=== PATIENT | male | born 1965 | race Caucasian/White ===

== ENCOUNTER → 2016-10-23 | Day surgery (SDC) | payer OTHER ==
[2016-10-17 09:03] VITALS: BMI 32.0
[~2016-10-23] VITALS: Ht 180.3 cm; Wt 104.5 kg
[~2016-10-23] MED LIST: LEVO175T3 PO; LIDOCAINE HCL 2% 2 ML VIAL (20MG/ML) ONE; LISI-461 PO; MIDAZOLAM HCL 1 MG/ML 2ML VIAL ONE; ONDANSETRON INJ 2 MG/ML 2 ML VIAL ONE; PRLSR20 PO; PROPOFOL IV EMULSION 10 MG/ML 20 ML VIAL IV ONE; RANI300T2 PO; SODIUM CHLORIDE 0.9% 500ML 500 ML IV ONE; VALA500T60 PO
[2016-10-23 08:59] VITALS: Ht 180.3 cm; Wt 104.5 kg
--- NOTE | 2016-10-23 09:49 | Endo History and Physical ---
History & Physical Date of Service: Oct 23, 2016. Chief Complaint: SCREENING Referring Physician: DR MEGAN SAUL History of Present Illness 51 yo CM who presents for screening colonoscopy. Past Surgical History Hx Cardiac Surgery: No Hx Internal Defibrillator: No Hx Pacemaker: No Hx Abdominal Surgery: No Hx of Implantable Prosthesis: No Hx Cancer Surgery: No Hx Thoracic Surgery: No Hx Orthopedic: No Hx Urinary Tract Surgery: No Family History None Social History Smoking Status: Never Smoker Hx Substance Use: No Hx Alcohol Use: Yes (OCCASIONALLY) Allergies Coded Allergies: NO KNOWN DRUG ALLERGIES (Verified Allergy, Unknown, ., 10/23/16) Current Medications Reported Home Medications Medications Dose Route/Sig Max Daily Dose Days Date Category Valtrex (Valacyclovir HCl) 500 Mg Tab 500 Mg PO DIRECTED PRN 10/17/16 Reported Zantac (Ranitidine HCl) 300 Mg Tab 300 Mg PO HS 10/17/16 Reported Prilosec (Omeprazole) 20 Mg Capcr 20 Mg PO QAM 10/17/16 Reported Zestril (Lisinopril) 10 Mg Tab 10 Mg PO QAM 10/17/16 Reported Levothyroxine Sodium 175 Mcg Tab 1 Tab PO QAM 90 10/17/16 Reported Vital Signs Weight (Kilograms): 104.55 Height (Feet): 5 Height (Inches): 11 Date Time Temp Pulse Resp B/P Pulse Ox O2 Delivery O2 Flow Rate FiO2 10/23/16 09:03 36.8 95 20 147/86 95 Room Air Physical Exam General Appearance: WD/WN, no apparent distress Respiratory/Chest: Auscultation: breath sounds normal Cardiovascular: Heart Auscultation: RRR Abdomen: Bowel Sounds: normal Inspection & Palpation: soft, non-distended, no tenderness, guarding & rebound Assessment and Plan Assessment: 51 yo CM who presents for screening colonoscopy. Plan: Proceed with colonoscopy.
--- NOTE | 2016-10-23 10:07 | Discharge Instructions ---
Endoscopy Patient Instructions Date / Procedure(s) Performed Oct 23, 2016. Colonoscopy Allergy Information Coded Allergies: NO KNOWN DRUG ALLERGIES (Verified Allergy, Unknown, ., 10/23/16) Discharge Date / Findings Oct 23, 2016. Internal hemorrhoids Medication Instructions OK to resume all medications today as prescribed. Reported Home Medications Medications Dose Route/Sig Max Daily Dose Days Date Category Valtrex (Valacyclovir HCl) 500 Mg Tab 500 Mg PO DIRECTED PRN 10/17/16 Reported Zantac (Ranitidine HCl) 300 Mg Tab 300 Mg PO HS 10/17/16 Reported Prilosec (Omeprazole) 20 Mg Capcr 20 Mg PO QAM 10/17/16 Reported Zestril (Lisinopril) 10 Mg Tab 10 Mg PO QAM 10/17/16 Reported Levothyroxine Sodium 175 Mcg Tab 1 Tab PO QAM 90 10/17/16 Reported Provider Instructions Activity Restrictions - No exercising or heavy lifting for 24 hours. - Do not drink alcohol the day of the procedure. - Do not drive a car or operate machinery until the day after the procedure. - Do not make any important decisions or sign important papers in 24 hours after the procedure. Following Day: - Return to full activity which may include returning to work/school. Diet Start your diet with liquids and light foods (jello, soup, juice, toast). Then eat your usual diet if not nauseated. Treatment For Common After Affects For mild abdominal pain, bloating, or excessive gas: - Rest - Eat lightly - Lie on right side Follow-Up Information Follow-up with DR MEGAN SAUL as scheduled Anesthesia Information What You Should Know You have had a procedure that required some medicine to reduce anxiety and discomfort. This treatment is called moderate sedation. After receiving the treatment, you may be sleepy, but you will be able to breathe on your own. The effects of the treatment may last for several hours. Follow these instructions along with Activity/Diet recommendations noted above: * Do NOT do anything where dizziness or clumsiness would be dangerous. * Rest quietly at home today, then you can be up and about tomorrow. * Have a responsible person stay with you the rest of today. * You may have had an I.V. today. If so, you may take the dressing off later today. Recommendations Call your doctor if: * Trouble breathing * Continuous vomiting for more than 24 hours * Temperature above 101 degrees * Severe abdominal pain or bloating * Pain not relieved by pain medicine ordered * There is increased drainage or redness from any incision * A large amount of rectal bleeding greater than 2-3 tablespoons. (If you had a polyp/s removed or have hemorrhoids, a small amount of blood - from the rectum is to be expected.) * You have any unanswered questions or concerns. IN THE EVENT OF A SERIOUS EMERGENCY, GO TO THE NEAREST EMERGENCY ROOM Your discharge instructions were prepared by provider Mitch Boo. Patient Instructions Signature Page Julian Ochoa Patient (or Guardian) Signature/Date: I have read and understand the instructions given to me by my caregivers. Caregiver/RN/Doctor Signature/Date: The above-named patient and/or guardian has received patient instructions on this date. + Original Patient Signature Page (only) stays with chart. Please make copy for patient.
--- NOTE | 2016-10-23 10:10 | GI REPORT ---
Procedure Date: 10/23/2016 9:44 AM Procedure: Colonoscopy Indications: Screening for colorectal malignant neoplasm Medicines: Monitored Anesthesia Care Complications: No immediate complications. Estimated Blood Loss: Estimated blood loss: none. Procedure: Pre-Anesthesia Assessment: - Prior to the procedure, a History and Physical was performed, and patient medications and allergies were reviewed. The patient's tolerance of previous anesthesia was also reviewed. The risks and benefits of the procedure and the sedation options and risks were discussed with the patient. All questions were answered, and informed consent was obtained. Prior Anticoagulants: The patient has taken no previous anticoagulant or antiplatelet agents. ASA Grade Assessment: II - A patient with mild systemic disease. After reviewing the risks and benefits, the patient was deemed in satisfactory condition to undergo the procedure. After I obtained informed consent, the scope was passed under direct vision. Throughout the procedure, the patient's blood pressure, pulse, and oxygen saturations were monitored continuously. The scope was introduced through the anus and advanced to the terminal ileum. The colonoscopy was performed without difficulty. The patient tolerated the procedure well. The quality of the bowel preparation was good. The terminal ileum, ileocecal valve, appendiceal orifice, and rectum were photographed. Findings: Non-bleeding internal hemorrhoids were found during retroflexion. The hemorrhoids were small. The exam was otherwise without abnormality. Impression: - Non-bleeding internal hemorrhoids. - The examination was otherwise normal. - No specimens collected. Recommendation: - Resume previous diet. - Continue present medications. - Repeat colonoscopy in 10 years for surveillance. - Return to primary care physician as previously scheduled. Mitch Boo DO 10/23/2016 10:08:52 AM This report has been signed electronically. Note Initiated On: 10/23/2016 9:44 AM I attest to the content of the Intraoperative Record and orders documented therein, exceptions below
--- NOTE | 2016-10-23 10:33 | Anesthesiology Progress Note ---
Anesthesia Post Op Note Date & Time Oct 23, 2016 at 10:32 Vital Signs Pain Intensity: 0 Vital Signs Past 12 Hours Date Time Temp Pulse Resp B/P Pulse Ox O2 Delivery O2 Flow Rate FiO2 10/23/16 10:11 95 20 100/70 95 Room Air 10/23/16 09:03 36.8 95 20 147/86 95 Room Air Notes Mental Status: alert / awake / arousable, participated in evaluation Pt Amnestic to Procedure: Yes Nausea / Vomiting: adequately controlled Pain: adequately controlled Airway Patency, RR, SpO2: stable & adequate BP & HR: stable & adequate Hydration State: stable & adequate Anesthetic Complications: no major complications apparent Pt doing well.
[2016-10-23 10:40] VITALS: BP 120/93; PULSE 81; O2SAT 95
== END | disposition home or self-care (01) ==
LOC: C.GI 08:41
PROVIDERS: ATTEND Internal Medicine
DX: Z12.11 Encounter for screening for malignant neoplasm of colon (principal); K64.8 Other hemorrhoids; I10 Essential (primary) hypertension; Z68.32 Body mass index [BMI] 32.0-32.9, adult

== ENCOUNTER → 2017-04-17 | Outpatient (CLI) | payer OTHER ==
[~2017-04-17] MED LIST changes: -LIDOCAINE HCL 2% 2 ML VIAL (20MG/ML) ONE; -MIDAZOLAM HCL 1 MG/ML 2ML VIAL ONE; -ONDANSETRON INJ 2 MG/ML 2 ML VIAL ONE; -PROPOFOL IV EMULSION 10 MG/ML 20 ML VIAL IV ONE; -SODIUM CHLORIDE 0.9% 500ML 500 ML IV ONE
--- NOTE | 2017-04-18 05:57 | PAP/PSG TECHNICIAN REPORT ---
[facility] Blanket Weaver Polysomnogram Report Study name: None Report date: 04/18/2017 Study date: 04/17/2017 Referring Physician: Osiel Buitrago MD Name: CB OCHOA Interpreting Physician: Dennys Rey M.D. Date of : 1965 Blanket Weaver: Earlene Escamilla, PSGT. Sex: Male Age: 51 StudyType: PSG Weight: 232 lbs Height: 51 years, Height 5' 11" Neck Circum:18 inches BMI: 32.35 Medications: Levothyroxine Sodium 175 mcg, Lisinopril 10 mg, Omeprazole 20 mg, Ranitidine HCI 300 mg, Neva acyclovir HCi 1 gm. Patient History 51 yr. old male presents [facility] for a split night sleep study. Patient states that his states that his snoring is loud, and has witnessed apneas.Patient has an enlarged uvula and continued reflux problems.ESS=3, Neck =18 inches. Parameters Monitored NPSG: E1-M2, E2-M1, Fp1-M2, Fp2-M1, F3-M2, F4-M2, F4-M1, C3-M2, C4-M2, C4-M1, O1-M2, O2-M2, O2-M1, T3-M2, T4-M1, P3-M2, P4-M1, CHIN1, CHIN2, HR, EKG, Legs, PFLOW, SNOR, FLOW, CFLOW, Tidal Volume, THOR, ABDO, SpO2, PLTH, CPRESS, ETCO2 Wave, ETCO2, pH Sleep Architecture Sleep Stages Time at Lights Off 10:10:49 PM STAGES Time (min.) TST (%) Time at Lights On 5:32:49 AM Wake 118.5 -- Total Recording Time (TRT) 444.00 min. N1 35.0 11 Total Sleep Period (TSP) 383.0 min. N2 230.0 71 Total Sleep Time (TST) 323.0min. N3 0.0 0 Awake Time 120.0 min. REM 58.0 18 Wake after Sleep Onset 60.0 min. Sleep Efficiency (SE) 73 % Sleep Onset Latency (DEVIN) 59.0 min. Number of Stage 1 Shifts None Awakenings 12 Stage Changes 43 Number of REM periods 2 REM 58.0 18 REM Latency 186.5 min. NREM 265.0 82 Body Position Analysis Supine Right Left Side Prone Vertical Total Sleep Time (min.) 270.0 42.5 93.3 135.82 0.0 0.2 Total Sleep Time (%) 58% 13% 29% 42 0% N/A% Total Sleep Time REM (min.) 13.2 10.5 34.3 None 0.0 0.0 Total Sleep Time NREM (min.) 174.0 32.0 59.0 None 0.0 0.0 Intermittent Wake (min.) 82.8 26.4 9.0 None 0.0 0.2 Total Sleep Period (%) 56% None None None None None Arousals Myoclonus (PLM) * Events Count Index Events Count Index Spontaneous 48 9 Events Awake (PLMW) 3 1.5 Respiratory 6 1.1 Events Asleep w/ Arousal (PLMA) 2 0.4 PLM 2 0 Events Asleep w/o Arousal (PLMS) 48 8.9 Snoring 26 5 Total Asleep 50 9.3 Total 81 15 Total 53 7 Respiratory Analysis * CA OA MA CH H RERA Total Count 1 1 0 0 41 4 43 Index 0.2 0.2 0.0 0 7.6 1 8.7 Mean Duration 12.0 17.5 0.0 0.00 19.3 10.2 18.4 Longest Duration 12.0 17.5 0.0 0.00 0.0 11.1 58.2 Respiratory Event Summary Total Supine ~Supine Right Left Prone REM NREM Apneas Count 2 1 1 1 0 N/A 1 1 Index 0.4 0 0 1.4 0.0 N/A 1 0 Hypopneas (4% Desat) Count 41 30 11 3 8 N/A 10 31 Index 7.6 9.6 5 4.2 5.1 N/A 10.3 7.0 Apneas & All Hypopneas Count 43 31 12 4 8 N/A 11 32 Index 8.0 10 5 6 5 N/A 11.4 7.2 Respiratory Events (Transmissions Systems Operator+All Hyp+RERA) Count 43 35 12 4 8 N/A 11 32 Index 8.7 11 5 5.6 5.1 N/A 11.4 8.2 Respiratory Related Arousal Count 6 35 2 1 1 N/A 2 4 Index 1.1 1 1 1 1 N/A 2 1 Snoring Analysis Supine Right Left Prone REM NREM Total Snore duration 61.5 min Snores count 1,421 402 475 N/A 218 2,080 2,298 Snore mean duration 1.6 Sec Snores index 455 567 305 N/A 225.5 470.9 426.9 TST with snoring (%) 19.0% Desaturation Event Summary: Minimum %SpO2 Event Count Mean/Min/Max Duration(sec.) Desaturation Index % Time In Bed > 90 60 31.2 / 10.0 / 60.0 8.8 92.6 86 - 90 3 20.9 / 19.8 / 22.0 5.6 7.4 81 - 85 0 N/A 0.0 0.0 76 - 80 0 N/A 0.0 0.0 71 - 75 0 N/A 0.0 0.0 66 - 70 0 N/A 0.0 0.0 61 - 65 0 N/A 0.0 0.0 56 - 60 0 N/A 0.0 0.0 51 - 55 0 N/A 0.0 0.0 < 50 0 N/A 0.0 0.0 Total REM NREM Awake <50% 0.0 min. 0.0 min. 0.0 min. 0.0 min. 51 - 60% 0.0 min. 0.0 min. 0.0 min. 0.0 min. 61 - 70% 0.0 min. 0.0 min. 0.0 min. 0.0 min. 71 - 80% 0.0 min. 0.0 min. 0.0 min. 0.0 min. 81 - 90% 32.6 min. 5.5 min. 25.2 min. 1.8 min. 91 - 100% 407.3 min. 52.5 min. 239.8 min. 115.1 min. Average 93 92 92 94 Minimum SpO2 84 89 84 86 Desaturation Event Index 8.2 20.7 9.3 0.0 # Desat. Events below 89% 10 N/A 10 N/A Time(%) with Saturation below 89% 0.6 0.0 0.6 0.0 Time(min.) with Saturation below 89% 2.6 0.0 2.6 0.1 Time (mins) REM (mins) NREM (mins) % of TST SpO2 Below 90% 37 10 N27 1.7 SpO2 Below 88% 5 0 0 0 Heart Rate Analysis Min (bpm) Max (bpm) Average (bpm) Awake 55 100 69 NREM 59 97 67 REM 60 95 68 Overall 59 97 68 Supplemental O2 Values Minimum O2 level: None Value Start Time End Time Blanket Weaver Comments PSG Study MR. Ochoa slept in the right, left, and supine positions. No cardiac arrhythmia or PLM's noted. No bruxism noted. Snoring was noted and scored as a 4 on a scale of 1 through 5. (0=no snoring, 5=snoring loud enough to be heard through a closed door or down the kelly way) Mr. Ochoa awoke to use the restroom zero times during the night. Mr. Ochoa stated, I did not sleep as well as I do when I am in my own bed. The final report will be interpreted and signed by a sleep physician. The completed physician report will then be placed in the patient medical record. Therapy (cm H2O) 0 TIB (min.) 441.5 TST (min.) 323.0 Sleep Onset (min.) 59.0 REM Onset From Sleep (min.) 186.5 Sleep Efficiency % 73 Wakefulness (%) 27 Wakefulness (min.) 120.0 NREM 1 (%) 11 NREM 1 (min.) 35.0 NREM 2 (%) 71 NREM 2 (min.) 230.0 NREM 3 (%) 0 NREM 3 (min.) 0.0 REM (%) 18 REM (min.) 58.0 # Arousals 81 Arousal Index 15 # Snore 2,298 Snore Index 426.9 AHI 8.0 AHI Supine 10 AHI Non-Supine 5 NREM AHI 7.2 REM AHI 11.4 RDI 8.7 # Obstructive Apnea 1 # Central Apnea 1 # Mixed Apnea 0 # Hypopneas 41 RERAs 4 Total Respiratory Events 49 Time Below SpO2 89% (min.) 2.6 Mean NREM SpO2 (%) 92 Mean REM SpO2 (%) 92 Mean Sleep SpO2 (%) 92 Min NREM SpO2 (%) 84 Min REM SpO2 (%) 89 Position Supine (min.) 270.0 Position Non-supine (min.) 135.8 LM Index Sleep 9.3 LM Index NREM 10.0 LM Index REM 6.2 Mean Heart Rate (bpm) 68 Min Heart Rate (bpm) 59
--- NOTE | 2017-04-19 09:04 | POLYSOMNOGRAPH REPORT ---
CLINICAL DATA: A 51-year-old male with BMI of 32.[address] Osiel Buitrago and Dr. Loyola for a sleep study. He has loud snoring and witnessed apneas. He has a large uvula and reflux. His [place] Sleep Score is 6/24. SLEEP ARCHITECTURE: Total sleep period was 383 minutes. Total sleep time was 323 minutes divided between 265 minutes of non-REM sleep and 58 minutes of REM sleep. Sleep onset latency was delayed at 59 minutes. REM latency was delayed at 186.5 minutes. Sleep efficiency was reduced at 73%. Wake after sleep onset was 60 minutes. Sleep consisted of stage N1 11%, stage N2 71%, and REM 18%. AROUSAL DATA: 81 arousals were recorded for an index of 15 per hour and 48 were spontaneous. PERIODIC LIMB MOVEMENTS DATA: 50 limb movements during sleep were noted for an index of 9.3 per hour with arousal index of 0.4 per hour. RESPIRATORY DATA: Mild sleep apnea was documented. The AHI was 8. There was 1 central and 1 obstructive apneic episode. The longest duration of apnea was 17.5 seconds. There were 41 hypopneic episodes. The mean duration of hypopnea was 19.3 seconds. OXIMETRY DATA: Mild nocturnal hypoxemia was seen. Oxygen dayanara was 84% during non-REM sleep. The mean saturation was 93%. Time below 88% was 5 minutes. EKG: Heart rates ranged from 59-97 beats per minute. No arrhythmias were noted. OSTEOPATHIC PHYSICIAN'S COMMENTS: The patient slept in the right, left, and supine positions. Snoring was severe, rated 4 on a scale of 1-5. The patient did not achieve enough apneic episodes to meet split night criteria early enough in the study to warrant treatment. IMPRESSION: Mild sleep apnea/hypopnea with an apnea-hypopnea index of 8. RECOMMENDATIONS: The patient may benefit from weight loss, use of an oral appliance, use of auto CPAP, or a repeat sleep study with CPAP. Clinical correlation is needed. JOSE R
== END | disposition home or self-care (01) ==
LOC: C.NEUR 20:00
DX: G47.33 Obstructive sleep apnea (adult) (pediatric) (principal)

== ENCOUNTER → 2017-10-08 | Outpatient (CLI) | payer OTHER ==
[2017-10-08 09:42] LABS: BASO % 0.6 %; BASO ABS # 0.04 K/uL (0-0.2); EOS % 2.2 %; EOS ABS # 0.14 K/uL (0-0.5); HEMATOCRIT 46.5 % (42-52); HEMOGLOBIN 16.2 g/dL (14.0-18.0); IG# 0.03 K/uL (0.00-0.02); LYMPH % 32.8 %; LYMPH ABS # 2.13 K/uL (1.2-3.4); MEAN CELL VOLUME 92.3 fL (80-100); MEAN CORPUSCULAR HEMOGLOBIN 32.1 pg (25-34); MEAN CORPUSCULAR HGB CONC 34.8 g/dl (32-36); MEAN PLATELET VOLUME 9.4 fL (7.4-10.4); MONO % 6.8 %; MONO ABS # 0.44 K/uL (0.11-0.59); NEUT % 57.1 %; NEUT ABS # 3.71 K/uL (1.4-6.5); PLATELET COUNT 239 K/uL (130-400); RED CELL DISTRIBUTION WIDTH SD 43.7 fL (36.4-46.3); WHITE BLOOD COUNT 6.49 K/uL (4.8-10.8)
[2017-10-08 09:53] LABS: ALBUMIN 4.2 gm/dl (3.4-5.0); ALT/SGPT 56 U/L (12-78); BLOOD UREA NITROGEN 16 mg/dl (7-18); CARBON DIOXIDE 27 mmol/L (21-32); CHOLESTEROL 183 mg/dl (0-200); CREATININE 1.14 mg/dl (0.60-1.40); GLUCOSE 90 mg/dl (70-99); POTASSIUM 4.3 mmol/L (3.5-5.1); SODIUM 140 mmol/L (136-145)
[2017-10-08 10:04] LABS: ALKALINE PHOSPHATASE 54 U/L (45-117); AST/SGOT 33 U/L (15-37); LDL CHOLESTEROL CALCULATED 96 mg/dl; TOTAL PROTEIN 7.7 gm/dl (6.4-8.2)
== END | disposition home or self-care (01) ==
LOC: C.LAB1850 07:32
PROVIDERS: ATTEND Neuromusculoskeletal Medicine & OMM
DX: E03.9 Hypothyroidism, unspecified (principal); E78.5 Hyperlipidemia, unspecified; I10 Essential (primary) hypertension